=== PATIENT | male | born 1995 | race Two or more races ===

== ENCOUNTER 2022-11-11 07:13 | Inpatient (IN) | payer MEDICAID, OTHER ==
[~2022-11-11] VITALS: Ht 167.6 cm; Wt 88.9 kg
[2022-11-11 07:59] LABS: Basophils # (auto) 0.1 10 ^3/uL (0-0.2); Eosinophils # (auto) 0.3 10 ^3/uL (0-0.8); Eosinophils % (auto) 2.6 % (0.0-7.0); Hematocrit 42.6 % (41.0-53.0); Hemoglobin 14.3 g/dL (13.5-17.5); Lymphocytes # (auto) 2.4 10 ^3/uL (0.4-5.4); Lymphocytes % (auto) 19.8 % (10.0-50.0); Mean Corpuscular Hemoglobin 29.4 pg (28.0-32.0); Mean Corpuscular Hgb Conc. 33.4 g/dL (32.0-36.0); Monocytes # (auto) 0.7 10 ^3/uL (0-1.3); Monocytes % (auto) 5.9 % (0.0-12.0); Neutrophils # (auto) 8.6 10 ^3/uL (1.6-8.6); Neutrophils % (auto) 70.7 % (37.0-80.0); Nucleated Red Blood Cells % 0.1 %; Red Blood Cells 4.85 10^6/uL (4.5-5.90); Red Cell Distribution Width 13.2 % (11.8-14.3); White Blood Cell 12.1 10^3/uL (4.4-10.8)
[2022-11-11 08:23] LABS: Albumin 3.6 g/dL (3.4-5.0); Calcium 8.1 mg/dL (8.5-10.1); Potassium 3.7 mmol/L (3.5-5.1)
[2022-11-11 08:27] LABS: BUN/Creatinine Ratio 13.2 (10.0-20.0); Bilirubin, Total 0.2 mg/dL (0.2-1.0); Total Protein 7.3 g/dL (6.4-8.2)
[2022-11-11 09:16] LABS: Alcohol, Urine < 3.0 mg/dL (0-10); Amphetamine Screen, Urine NEGATIVE (NEGATIVE); Barbiturate Scree,Urine NEGATIVE (NEGATIVE); Benzodiazephine Screen, Urine NEGATIVE (NEGATIVE); Cannabinoid Screen, Urine POSITIVE (NEGATIVE); Cocaine Screen, Urine NEGATIVE (NEGATIVE)
[2022-11-11 09:24] LABS: Opiate Scree,Urine NEGATIVE (NEGATIVE); Phencyclidine Screen, Urine NEGATIVE (NEGATIVE)
[2022-11-11 10:33] LABS: Urine Amorphous Crystal FEW /hpf (None Seen); Urine Bacteria NONE SEEN /hpf (None Seen); Urine Blood Negative /uL (Negative); Urine Budding Yeast MODERATE /hpf (None Seen); Urine Clarity HAZY (Clear); Urine Color Yellow (Yellow); Urine Mucus FEW (None Seen); Urine Protein, UAD 1+ (Negative); Urine Specific Gravity 1.027 (1.001-1.035); Urine Urobilinogen Normal (Negative); Urine WBC 5 /hpf (0 - 3)
[2022-11-11] MEDS ORDERED: DOCUSATE SOD 100 MG CAP PO PRN (13:00)
[2022-11-11] MEDS ORDERED: MORPHINE SULFATE INJ 2 MG/ml SYRG IV PRN (13:00)
[2022-11-11] MEDS ORDERED: ONDANSETRON HCL 4 MG/2 ML VIAL IV PRN (13:00)
[2022-11-11 14:20] VITALS: PULSE 75; RESP 16; O2SAT 98
[2022-11-11] MEDS: SODIUM CHLORIDE 0.9% 1,000 ML IV SCH ×2 (14:33→21:30)
[2022-11-11 15:16] LABS: INR 1.04 (0.9-1.15); Prothrombin Time 10.9 sec (9.3-11.8)
[2022-11-11] MEDS: PIPERACILLIN-TAZOB 3.375GM 100 ML IV SCH (18:04)
[2022-11-11 20:15] VITALS: PULSE 69; RESP 13; O2SAT 96
[2022-11-11 21:28] VITALS: BP 117/66; PULSE 60; RESP 18; TEMP 98.2; O2SAT 97
[2022-11-11 22:01] VITALS: BP 117/66; PULSE 60; RESP 18; TEMP 98.2; O2SAT 97
[2022-11-11 23:36] VITALS: BP 117/66; PULSE 60; RESP 18; TEMP 98.2
[2022-11-12 05:00] VITALS: BP 114/65; PULSE 56; RESP 16; TEMP 98.3; O2SAT 95
[2022-11-12] MEDS: SODIUM CHLORIDE 0.9% 1,000 ML IV SCH ×4 (05:23→22:35)
[2022-11-12] MEDS: PIPERACILLIN-TAZOB 3.375GM 100 ML IV SCH ×4 (06:08→19:04)
[2022-11-12 06:42] LABS: Basophils # (auto) 0.1 10 ^3/uL (0-0.2); Basophils % (auto) 0.6 % (0.0-2.0); Eosinophils # (auto) 0.5 10 ^3/uL (0-0.8); Eosinophils % (auto) 4.8 % (0.0-7.0); Hematocrit 41.4 % (41.0-53.0); Hemoglobin 14.1 g/dL (13.5-17.5); Lymphocytes # (auto) 2.9 10 ^3/uL (0.4-5.4); Mean Corpuscular Hemoglobin 30.1 pg (28.0-32.0); Mean Corpuscular Volume 88.4 fL (80.0-100.0); Monocytes # (auto) 0.7 10 ^3/uL (0-1.3); Monocytes % (auto) 6.8 % (0.0-12.0); Neutrophils # (auto) 5.6 10 ^3/uL (1.6-8.6); Neutrophils % (auto) 57.8 % (37.0-80.0); Red Blood Cells 4.68 10^6/uL (4.5-5.90); Red Cell Distribution Width 12.8 % (11.8-14.3); White Blood Cell 9.7 10^3/uL (4.4-10.8)
[2022-11-12 06:49] LABS: Potassium 3.4 mmol/L (3.5-5.1)
[2022-11-12 06:58] LABS: BUN/Creatinine Ratio 16.3 (10.0-20.0); Bilirubin, Total 0.5 mg/dL (0.2-1.0); Calcium 8.2 mg/dL (8.5-10.1); Total Protein 6.1 g/dL (6.4-8.2)
[2022-11-12 09:00] VITALS: BP 117/67; PULSE 55; RESP 20; TEMP 98.1; O2SAT 94
[2022-11-12] MEDS ORDERED: POTASSIUM CHL 20 Meq TABLET PO ONE (09:45)
[2022-11-12] MEDS ORDERED: PANTOPRAZOLE 40 MG/10 ML VIAL INJ IV ONE (12:45)
[2022-11-12 13:00] VITALS: BP 126/71; PULSE 68; RESP 18; TEMP 98.4; O2SAT 96
[2022-11-12 17:09] VITALS: BP 154/63; PULSE 71; RESP 16; TEMP 98.6; O2SAT 97
[2022-11-12 20:00] VITALS: BP 126/74; PULSE 71; RESP 16; TEMP 98.6; O2SAT 97
[2022-11-12 22:00] VITALS: BP 123/71; PULSE 68; RESP 19; TEMP 98.5; O2SAT 96
[2022-11-13 05:00] VITALS: BP 114/67; PULSE 53; RESP 17; TEMP 97.7; O2SAT 96
[2022-11-13] MEDS: PIPERACILLIN-TAZOB 3.375GM 100 ML IV SCH ×4 (05:01→18:15)
[2022-11-13 08:00] VITALS: RESP 16
[2022-11-13 08:53] LABS: BUN/Creatinine Ratio 14.1 (10.0-20.0); Calcium 8.4 mg/dL (8.5-10.1); Potassium 4.2 mmol/L (3.5-5.1)
[2022-11-13] MEDS: PANTOPRAZOLE 40 MG/10 ML VIAL INJ IV SCH (09:08)
[2022-11-13 09:17] LABS: Basophils # (auto) 0.1 10 ^3/uL (0-0.2); Basophils % (auto) 0.6 % (0.0-2.0); Eosinophils # (auto) 0.4 10 ^3/uL (0-0.8); Eosinophils % (auto) 4.3 % (0.0-7.0); Hematocrit 43.3 % (41.0-53.0); Hemoglobin 14.5 g/dL (13.5-17.5); Lymphocytes # (auto) 1.9 10 ^3/uL (0.4-5.4); Lymphocytes % (auto) 21.5 % (10.0-50.0); Mean Corpuscular Hemoglobin 29.6 pg (28.0-32.0); Mean Corpuscular Hgb Conc. 33.5 g/dL (32.0-36.0); Mean Corpuscular Volume 88.5 fL (80.0-100.0); Monocytes # (auto) 0.6 10 ^3/uL (0-1.3); Monocytes % (auto) 6.3 % (0.0-12.0); Neutrophils # (auto) 6.1 10 ^3/uL (1.6-8.6); Neutrophils % (auto) 67.3 % (37.0-80.0); Nucleated Red Blood Cells % 0.1 %; Red Blood Cells 4.89 10^6/uL (4.5-5.90); Red Cell Distribution Width 13.1 % (11.8-14.3)
[2022-11-13 09:51] LABS: Hepatitis B Surface Antibody Negative (Negative)
[2022-11-13 10:14] LABS: Hepatitis A Total Antibody Positive (Negative)
[2022-11-13 11:58] LABS: Hepatitis B Core Total AB Negative (Negative); Hepatitis B Surface Antigen Negative (Negative)
[2022-11-13 11:59] LABS: Hepatitis C Antibody Negative (Negative)
[2022-11-13 13:00] VITALS: BP 127/75; PULSE 71; RESP 20; TEMP 98.1; O2SAT 99
[2022-11-13 16:57] VITALS: BP 127/75; PULSE 71; RESP 20; TEMP 98.1; O2SAT 99
[2022-11-13 20:00] VITALS: BP 128/62; PULSE 71; PULSE 74; RESP 19; RESP 20; TEMP 98.6; O2SAT 99
[2022-11-13 22:00] VITALS: BP 128/62; PULSE 74; RESP 19; TEMP 98.6; O2SAT 97
[2022-11-13] MEDS: SODIUM CHLORIDE 0.9% 1,000 ML IV SCH (23:20)
[2022-11-14 05:00] VITALS: BP 109/62; PULSE 56; RESP 19; TEMP 98.3; O2SAT 97
[2022-11-14] MEDS: PIPERACILLIN-TAZOB 3.375GM 100 ML IV SCH ×3 (05:35→13:12)
[2022-11-14] MEDS: SODIUM CHLORIDE 0.9% 1,000 ML IV SCH (06:38)
[2022-11-14 08:00] VITALS: RESP 16
[2022-11-14 09:00] VITALS: BP 114/71; PULSE 53; RESP 18; TEMP 97.7; O2SAT 96
[2022-11-14] MEDS: PANTOPRAZOLE 40 MG/10 ML VIAL INJ IV SCH (09:46)
[2022-11-14 13:00] VITALS: BP 113/56; PULSE 53; RESP 19; TEMP 98.2; O2SAT 99
[2022-11-14 17:01] VITALS: BP 101/66; PULSE 68; RESP 18; TEMP 98.4; O2SAT 98
[2022-11-14 17:26] VITALS: BP 101/66; PULSE 88; RESP 20; TEMP 98.4; O2SAT 98
== END 2022-11-14 18:10 | disposition home or self-care (01) ==
LOC: ER 07:13 → OVERFLOW 12:58 → CENTRAL 21:25
PROVIDERS: ADMIT Internal Medicine; ATTEND Internal Medicine
DX: K80.00 Calculus of gallbladder with acute cholecystitis without obstruction (principal); D72.829 Elevated white blood cell count, unspecified; F17.210 Nicotine dependence, cigarettes, uncomplicated
CPT/HCPCS: 36415; 74176; 76705; 78226; 80048; 80053; 80307; 81001; 83690; 84443; 85025; 85610; 86704; 86706; 86708; 86803; 86850; 86900; 86901; 87340; C9113; G0378; J2543